=== PATIENT | female | born 1990 | race Caucasian/White ===

== ENCOUNTER 2016-12-18 17:59 | Emergency (ER) | payer BC ==
[2016-12-18 20:08] VITALS: BP 120/70
--- NOTE | 2017-01-03 18:00 | UC ---
Throat Pain/Nasal Boaz HPI - HPI Summary HPI Summary: pt p/w increased cough, chest congestion, wheezing, st, and hoarse voice for days following 6 days of sinus congestion/pain and subjective fever. pt reports that those symptoms resolved as the respiratory ones started. cough interferring with sleep - History of Current Complaint Chief Complaint: UCGeneralIllness Stated Complaint: CONGESTION/WHEEZING Time Seen by Provider: 12/18/16 20:20 Hx Obtained From: Patient Hx Last Menstrual Period: 12/16/16 ?: No Onset/Duration: Gradual Onset, Lasting Days - 6 days of resolved sx and 1 days of new sx. Severity: Moderate Pain Intensity: 0 Pain Scale Used: 0-10 Numeric Cough: Nonproductive Associated Signs & Symptoms: Positive: Dysphagia - painful, Wheezing, Hoarseness. Negative: Drooling, Sinus Discomfort - resolved, Nasal Discharge - resolved, Fever - resolved - Allergies/Home Medications Allergies/Adverse Reactions: Allergies Allergy/AdvReac Type Severity Reaction Status Date / Time No Known Allergies Allergy Verified 12/18/16 20:02 PMH/Surg Hx/FS Hx/Imm Hx Endocrine History Of: Reports: Thyroid Disease Denies: Diabetes Cardiovascular History Of: Denies: Hypertension, Pacemaker/ICD GI/ History Of: Reports: Gastroesophageal Reflux Denies: Renal Disease Psychological History Of: Reports: Depression - Surgical History Surgical History: Yes Surgery Procedure, Year, and Place: WISDOM TEETH REMOVAL. GALLBLADDER REMOVAL - Family History Known Family History: Positive: Hypertension Negative: Cardiac Disease, Diabetes - Social History Occupation: Employed Full-time Lives: With Family Alcohol Use: None Substance Use Type: None Smoking Status (MU): Never Smoked Tobacco Have You Smoked in the Last Year: No - Immunization History Most Recent Influenza Vaccination: 06/2016 Review of Systems ENT: Sore Throat Respiratory: Cough, Other - wheezing All Other Systems Reviewed And Are Negative: Yes Physical Exam Triage Information Reviewed: Yes Appearance: Well-Appearing, No Pain Distress, Well-Nourished Vital Signs: Initial Vital Signs Temp 97.8 F 12/18/16 20:05 Pulse 93 12/18/16 20:05 Resp 20 12/18/16 20:05 BP 120/70 12/18/16 20:05 Pulse Ox 99 12/18/16 20:05 Vital Signs Reviewed: Yes Eyes: Positive: Conjunctiva Clear. Negative: Discharge ENT: Positive: Hearing grossly normal, Pharynx normal, TMs normal, Muffled/ hoarse voice. Negative: Nasal congestion, Nasal drainage, Tonsillar swelling, Tonsillar exudate, Trismus Neck: Positive: Supple, Nontender Respiratory: Positive: Lungs clear, Normal breath sounds, No respiratory distress, No accessory muscle use, Expiration - prolonged exp at bases bl Cardiovascular: Positive: RRR, No Murmur Musculoskeletal Exam: Normal Neurological: Positive: Alert, Muscle Tone Normal Psychological: Positive: Age Appropriate Behavior Skin Exam: Normal Throat Pain/Nasal Course/Dx - Differential Dx/Diagnosis Differential Diagnosis/HQI/PQRI: Laryngitis, Pharyngitis, Sinusitis, Tonsillitis , URI, Other - bronchitis, pna Provider Diagnoses: laryngitis, bronchospasm Discharge - Discharge Plan Condition: Stable Disposition: HOME Prescriptions: Albuterol HFA INHALER* [Ventolin HFA Inhaler*] 2 puff INH Q4H PRN #1 mdi PRN Reason: Sob/Wheezing guaiFENesin ER TAB [Mucinex*] 600 mg PO BID PRN #1 box PRN Reason: Cough guaiFENesin/CODIEN 100MG-10MG* [Robitussin AC 100Mg-10Mg*] 5 - 10 ml PO BEDTIME PRN #100 udc MDD 10ml PRN Reason: Cough Patient Education Materials: Laryngitis (ED), Bronchospasm (ED) Referrals: Gilbert Avitia MD [Primary Care Provider] - If Needed Additional Instructions: INHALED BRONCHODILATORS: You have received a prescription for an inhaled bronchodilator -- a medication which stimulates the airways in the lung to dilate. This improves the flow of air in asthma, bronchitis, and emphysema. These medicines have some similarity to adrenaline, and can cause similar side effects: shakiness, racing heart, and a sense of nervousness. These side effects decrease with time. Contact your doctor if these side effects are severe. Do not over-use the medicine. Too-frequent use of the inhaler may make it ineffective. Call your doctor if the inhaler is not controlling your symptoms at the prescribed doses. COUGH-SUPPRESSANT & EXPECTORANT MEDICATION: You are to use a cough medication as needed for relief of symptoms. This medicine is a combination of an expectorant (to make the mucous thinner and more easily "coughed up") and a cough suppressant (to reduce the frequency of coughing). The cough-suppressant medicine is related to narcotics. You may experience mild nausea and sleepiness. Some patients who are very sensitive to narcotics may have stomach pain from this medicine. Taking the medicine with food reduces these side effects. Do not drive or work with machinery until you know how this medicine affects you. The expectorant should have no side effects. Iodine-containing expectorants (such as organidin) should not be taken by persons with active thyroid disease unless approved by your doctor. Call the doctor if you develop shortness of breath, hives, rash, itching, lightheadedness, or severe nausea and vomiting. EXPECTORANT MEDICATION: An expectorant medicine has been prescribed. This type of drug makes mucous thinner, helping the sinuses, nose, and bronchial tubes to remain free of pus and mucous. Expectorants make a cough less severe and more comfortable, and help infected sinuses drain. In general, antihistamines defeat the purpose of the expectorant by making mucous thicker. They should be avoided unless specifically recommended by your physician.
== END 2016-12-18 21:21 | disposition home or self-care (01) ==
LOC: UCCORT 17:59
DX: J04.0 Acute laryngitis (principal); J98.01 Acute bronchospasm; E07.9 Disorder of thyroid, unspecified; K21.9 Gastro-esophageal reflux disease without esophagitis; F32.9 Major depressive disorder, single episode, unspecified; Z90.49 Acquired absence of other specified parts of digestive tract
CPT/HCPCS: 99212; G0463

== ENCOUNTER 2017-06-18 15:05 | Emergency (ER) | payer BC ==
[2017-06-18 16:49] VITALS: BP 126/85
--- NOTE | 2017-06-18 16:57 | UC ---
Complaint Female HPI - HPI Summary HPI Summary: "I think I have a UTI." Suprapubic pressure, urinary frequency, and urinary urgency for three days. Patient dipped her urine at work and stated that she had blood, leuks, and protein in her urine today. Denies fever/chills, abdominal pain, back pain, increased NVD, dysuria, gross hematuria, or abnormal vaginal discharge/itching/odor/pain. Patient called her OB and was instructed to leave a sample at the hospital but did not want to wait for results while symptomatic. Patient is a medical device sales consultant. PCP Sadi. [facility] but switching to [place] (06/28/17). No fever or concerns for nausea / kidney concerns. Baby is moving . 23 weeks and THONG 10/26/17 [ End ] - History Of Current Complaint Chief Complaint: UCGU Stated Complaint: URINARY Time Seen by Provider: 06/18/17 16:46 Hx Obtained From: Patient Hx Last Menstrual Period: 12/16/16 Onset/Duration: Gradual Onset Timing: Constant Severity Initially: Mild Severity Currently: Mild - Allergies/Home Medications Allergies/Adverse Reactions: Allergies Allergy/AdvReac Type Severity Reaction Status Date / Time No Known Allergies Allergy Verified 06/18/17 16:27 Home Medications: Home Medications Vitamin TAB* 1 tab PO DAILY 06/18/17 [History Confirmed 06/18/17] PMH/Surg Hx/FS Hx/Imm Hx Previously Healthy: Yes - Surgical History Surgical History: Yes Surgery Procedure, Year, and Place: Laproscopy, 2016, [place]; Cholecystectomy, 2014, [place]; - Family History Known Family History: Positive: Hypertension Negative: Cardiac Disease, Diabetes - Social History Occupation: Employed Full-time - [place] Lives: With Family Alcohol Use: None Substance Use Type: None Smoking Status (MU): Never Smoked Tobacco Have You Smoked in the Last Year: No - Immunization History Most Recent Influenza Vaccination: Not the 2016/2017 Season Review of Systems Genitourinary: Dysuria, Frequency, Urgency All Other Systems Reviewed And Are Negative: Yes Physical Exam Triage Information Reviewed: Yes Appearance: Well-Appearing, No Pain Distress, Well-Nourished Vital Signs: Initial Vital Signs Temp 98.8 F 06/18/17 16:24 Pulse 96 06/18/17 16:24 Resp 18 06/18/17 16:24 BP 126/85 06/18/17 16:24 Pulse Ox 99 06/18/17 16:24 Vital Signs Reviewed: Yes Eye Exam: Normal ENT Exam: Normal Dental Exam: Normal Neck exam: Normal Neck: Positive: 1 Respiratory Exam: Normal Cardiovascular Exam: Normal Abdomen Description: Positive: Other: - gravid Musculoskeletal Exam: Normal Neurological Exam: Normal Psychological Exam: Normal Skin Exam: Normal Complaint Female Dx - Course Course Of Treatment: Simple UTI -- if Sx worsen then go to ED. Discussed meds and f/u - Differential Dx/Diagnosis Differential Diagnosis/HQI/PQRI: Urinary Tract Infection Provider Diagnoses: UTI during second trimester Discharge - Discharge Plan Condition: Good Disposition: HOME Prescriptions: Nitrofurantoin Monohyd Macro [Macrobid] 100 mg PO BID #14 cap Patient Education Materials: Urinary Tract Infection in Women (ED) Referrals: Gilbert Avitia MD [Primary Care Provider] - 3 Days
--- NOTE | 2017-06-22 10:54 | UC ---
Progress - Progress Note Progress Note: PLEASE HAVE THE PT. SPOT MACROBID WILL ERX AUGMENTIN 2 X PER DAY X 10 DAYS
== END 2017-06-18 17:02 | disposition home or self-care (01) ==
LOC: UCCORT 15:05
DX: O23.32 Infections of other parts of urinary tract in pregnancy, second trimester (principal); Z3A.23 23 weeks gestation of pregnancy; O23.42 Unspecified infection of urinary tract in pregnancy, second trimester; B96.1 Klebsiella pneumoniae [K. pneumoniae] as the cause of diseases classified elsewhere
CPT/HCPCS: 81003; 87077; 87086; 87186; 99212; G0463

== ENCOUNTER 2019-10-03 09:57 | Inpatient (IN) | payer BC ==
[~2019-10-03 09:57] MED LIST: Buffered Lidocaine 1% SYRIN* 1 ML/SYRINGE INTRADERM ONE; Famotidine IV* 10 MG/ML 2 ML (20 mg) IV ONE; Lactated Ringers 1000 ML Bag* 1,000 ML IV SCH
[2019-10-03] MEDS ORDERED: ceFAZolin 1 GM ADVAN(*) 1 GM ADDV.VIAL IVPB ONE (10:30)
[2019-10-03] MEDS ORDERED: Heparin VIAL(*) 5000 UNITS/ML VIAL (FIVE THOUSAND) ONE (10:30)
[2019-10-03] MEDS ORDERED: Famotidine IV* 10 MG/ML 2 ML (20 mg) ONE (10:30)
[2019-10-03] MEDS ORDERED: ceFAZolin 2 GM in NS PREMIX(*) 2 GM/100 ML BAG IVPB ONE (10:31)
[2019-10-03] MEDS ORDERED: Lidocaine 2% PF * 5 ML VIAL ONE (11:07)
[2019-10-03] MEDS ORDERED: fentaNYL* 50 MCG/ML 2 ML VIAL (100 MCG VIAL) ONE ×2 (11:07→18:35)
[2019-10-03] MEDS ORDERED: Propofol* 10 MG/ML 20 ML BTL ONE (11:07)
[2019-10-03] MEDS ORDERED: Rocuronium* 10 MG/ML VIAL ONE (11:07)
[2019-10-03] MEDS ORDERED: Dexamethasone IV* 4 MG/ML 1 ML (4 MG) ONE (11:07)
[2019-10-03] MEDS ORDERED: Ketorolac INJ* 30 MG/ML 1 ML VIAL ONE (11:07)
[2019-10-03] MEDS ORDERED: Ondansetron INJ* 2 MG/ML VIAL ONE (11:07)
[2019-10-03] MEDS ORDERED: Midazolam* 1 MG/ML 5 ML VIAL (5 MG) ONE (11:08)
[2019-10-03] MEDS ORDERED: KETAMINE HCL* 50 MG/ML 10 ML VIAL ONE (11:08)
[2019-10-03] MEDS ORDERED: Acetaminophen TAB* 325 MG ONE (14:02)
[2019-10-03] MEDS ORDERED: Bupivacaine 0.25% EPI 200,000* 30 ML SDV ONE (15:44)
[2019-10-03] MEDS ORDERED: Scopolamine 1.5 mg* PATCH ONE (16:04)
[2019-10-03] MEDS ORDERED: DiMENhydriNATE IV* 50 MG/ML VIAL IV PUSH PRN (16:37)
[2019-10-03] MEDS ORDERED: PROCHLORPERAZINE INJ 5 MG/ML 2 ML VIAL IV PRN (16:37)
[2019-10-03] MEDS ORDERED: Naloxone* 0.4 MG/ML 1 ML VIAL IV PRN (16:37)
[2019-10-03] MEDS ORDERED: fentaNYL* 50 MCG/ML 2 ML VIAL (100 MCG VIAL) IV PRN (16:37)
[2019-10-03] MEDS ORDERED: Metoclopramide IV* 5 MG/ML 2 ML VIAL ONE (16:47)
[2019-10-03] MEDS ORDERED: Sugammadex * 500 MG/5 ML VIAL IV PUSH ONE (16:57)
[2019-10-03] MEDS: Ketorolac INJ* 30 MG/ML 1 ML VIAL IV SCH ×2 (17:00→23:32)
[2019-10-03] MEDS ORDERED: HYDROmorphone INJ1* 1 MG/ML SYRINGE ONE (17:07)
[2019-10-03] MEDS ORDERED: diPHENhydraMINE IV* 50 MG/ML 1 ml VIAL (BENADRYL) SLOW PUSH PRN (17:18)
[2019-10-03] MEDS ORDERED: Acetaminophen ADULT LIQ* 650 MG/20.3 ML UDC PO PRN (17:18)
[2019-10-03] MEDS ORDERED: HYDROmorphone INJ* 0.5 MG/0.5 ML SYRINGE IV SLOW PU PRN (17:18)
--- NOTE | 2019-10-03 17:18 | BRIEFOPN ---
Brief Operative/Procedure Note - Operation Details Pre-Op Diagnosis: Morbid obesity Post-Op Diagnosis: Morbid obesity Procedures: Laparoscopic sleeve gastrectomy Surgeon(s)/Proceduralists: Dr. Arnold. Assist: MATTEO He. MATTEO Hernández Anesthesia: GETA. IVF: 2L Estimated Blood Loss: <50cc Findings: As above Specimen(s)/Culture(s) Description: Stomach portion Complications: None
[2019-10-03] MEDS ORDERED: DiMENhydriNATE IV* 50 MG/ML VIAL ONE (17:44)
[2019-10-03] MEDS ORDERED: PROCHLORPERAZINE INJ 5 MG/ML 2 ML VIAL ONE (17:52)
[2019-10-03] MEDS: Lactated Ringers 1000 ML Bag* 1,000 ML IV SCH (20:08)
[2019-10-03] MEDS: Famotidine IV* 10 MG/ML 2 ML (20 mg) IV SLOW PU SCH (21:15)
[2019-10-03] MEDS: Heparin VIAL(*) 5000 UNITS/ML VIAL (FIVE THOUSAND) SUBCUT SCH (21:18)
[2019-10-03] MEDS: Ondansetron INJ* 2 MG/ML VIAL IV PRN (21:36)
--- NOTE | 2019-10-04 01:24 | OP ---
CC: [facility]; MATTEO Edwards * DATE OF OPERATION: 10/03/19 - ROOM #352 DATE OF : 88 SURGEON: Qasim Arnold MD ASSISTANTS: 1. MATTEO Oscar 2. MATTEO Uriarte ANESTHESIOLOGIST: Dr. Navid Barone. ANESTHESIA: General endotracheal. PRE-OP DIAGNOSES: 1. Morbid obesity. 2. Hiatal hernia. POST-OP DIAGNOSIS: Morbid obesity. OPERATIVE PROCEDURE: Laparoscopic sleeve gastrectomy. ESTIMATED BLOOD LOSS: Minimal. IV FLUIDS: Crystalloid. SPECIMENS: Portion of stomach. DRAINS: None. COMPLICATIONS: None. COUNTS: Instrument, needle, and sponge counts were correct. DESCRIPTION OF PROCEDURE: The patient was brought to the operating room and placed on the table supine. Sequential compression devices were placed in both lower extremities. General anesthesia was administered. She was positioned and padded appropriately. She received appropriate intravenous antibiotics. She was prepped and draped in the usual sterile fashion and a time-out was performed. Local anesthetic was infiltrated into the skin and soft tissue prior to making each incision and entry through the abdomen is through a left upper quadrant incision accommodating a 5-mm optical trocar. After accessing the peritoneal cavity, carbon dioxide was insufflated to a pressure of 15 mmHg. Under direct visualization, 12 mm bladeless trocars were placed in the supraumbilical midline and right upper quadrant. A 5-mm trocar was placed through left upper quadrant laterally and Giovanni liver retractor was placed percutaneously in the subxiphoid position used to elevate the left lobe of the liver. Careful inspection of the gastric anatomy revealed no evidence of hiatal hernia. Epigastric fat pad was mobilized and there were no dimpling, no evidence of hernia whatsoever. Greater curvature was then mobilized starting at 6 cm proximal to the pylorus and using LigaSure the entire greater curvature was skeletonized and the lesser sac was entered. The dissection proceeded to left clement of the diaphragm. There was inspection of the hiatus from the posterior, yet again no evidence of any hernia. At this point, it was decided that sleeve gastrectomy would be performed. Sleeve gastrectomy was performed over a 40-Frisian bougie using EndoGIA stapler with purple reinforced cartridges. After completing the serial division of the stomach, the gastric specimen was retrieved through right upper quadrant port site. Hemostasis was assured. Staple ends were noted to be intact. Igovanni liver retractor and ports were removed under direct visualization, and carbon dioxide was released. Skin incisions were closed with 4-0 Monocryl in subcuticular fashion. DermaFlex was applied. The patient tolerated the procedure well, was extubated and transferred to the recovery room in stable condition. [id number]/[facility] #: [id number] MTDD
[2019-10-04] MEDS: Lactated Ringers 1000 ML Bag* 1,000 ML IV SCH ×2 (03:03→10:03)
[2019-10-04] MEDS: HYDROmorphone INJ1* 1 MG/ML SYRINGE IV SLOW PU PRN ×3 (03:15→22:02)
[2019-10-04] MEDS: Ondansetron INJ* 2 MG/ML VIAL IV PRN ×3 (03:28→17:09)
[2019-10-04] MEDS: Ketorolac INJ* 30 MG/ML 1 ML VIAL IV SCH ×3 (06:28→17:09)
[2019-10-04] MEDS: Levothyroxine INJ* 100 MCG/5 ML VIAL IV SCH (06:28)
[2019-10-04] MEDS: Heparin VIAL(*) 5000 UNITS/ML VIAL (FIVE THOUSAND) SUBCUT SCH ×3 (06:29→22:00)
[2019-10-04] MEDS: Famotidine IV* 10 MG/ML 2 ML (20 mg) IV SLOW PU SCH ×2 (10:03→21:55)
--- NOTE | 2019-10-04 10:22 | PN ---
Progress Note - Progress Note Date of Service: 10/04/19 SOAP: Subjective: NAD c/o nausea overnight, no nausea now [] Objective: Vital Signs Temp 98.7 F 10/04/19 07:53 Pulse 83 10/04/19 07:53 Resp 16 10/04/19 10:03 BP 124/65 10/04/19 07:53 Pulse Ox 97 10/04/19 07:53 Intake & Output 10/03/19 10/04/19 10/04/19 18:59 06:59 18:59 Intake Total 3808 667 1331 Output Total 700 300 Balance 1900 290 722 Weight 257 lb 7.999 oz Intake: IV Fluids 0980 777 8483 LR 9060 133 0089 Oral 0 Output: Urine 700 300 PEX: Gen: NAD Chest: CTA CVS: RRR ABD: Obese, incisions C/D/I, Incisional tenderness Ext: Calves Soft, non tender Assessment: 29 yo female POD 1 S/P lap sleeve gastrectomy [] Plan: Begin tashia clears, IS, encouraged Deep Breathing, OOB, Ambulate []
[2019-10-04] MEDS: HYDROcodone/ACET. 7.5/325 LIQ* 15 ML UDC PO PRN (15:48)
[2019-10-04] MEDS: Metoclopramide IV* 5 MG/ML 2 ML VIAL IV PRN ×2 (15:48→21:52)
[2019-10-04] MEDS: D5W 1/2 NS KCl 20 Meq 1000 ML* 1,000 ML IV SCH (17:04)
[2019-10-05] MEDS: Ondansetron INJ* 2 MG/ML VIAL IV PRN ×2 (00:33→09:49)
[2019-10-05] MEDS: Ketorolac INJ* 30 MG/ML 1 ML VIAL IV SCH ×3 (00:33→12:43)
[2019-10-05] MEDS: D5W 1/2 NS KCl 20 Meq 1000 ML* 1,000 ML IV SCH ×2 (00:38→07:56)
[2019-10-05] MEDS: HYDROmorphone INJ1* 1 MG/ML SYRINGE IV SLOW PU PRN (04:36)
[2019-10-05] MEDS: Metoclopramide IV* 5 MG/ML 2 ML VIAL IV PRN (04:36)
[2019-10-05] MEDS: Heparin VIAL(*) 5000 UNITS/ML VIAL (FIVE THOUSAND) SUBCUT SCH ×2 (06:01→14:31)
[2019-10-05] MEDS: Levothyroxine INJ* 100 MCG/5 ML VIAL IV SCH (06:06)
--- NOTE | 2019-10-05 08:39 | PN ---
Progress Note - Progress Note Date of Service: 10/05/19 SOAP: Subjective: Feeling better today. Less pain and no nausea. Starting to drink more. Feels she could go home later. Discussed findings at time of surgery. Objective: Vital Signs Temp 97.6 F 10/05/19 08:25 Pulse 60 10/05/19 08:25 Resp 15 10/05/19 08:25 BP 110/64 10/05/19 08:25 Pulse Ox 99 10/05/19 08:25 Gen: NAD Abd: incisions c/d/i; no erythema; soft and min tender. Intake & Output 10/04/19 10/05/19 10/05/19 18:59 06:59 18:59 Intake Total 2080 1192 904 Output Total 300 1050 300 Balance 1780 142 604 Intake: IV Fluids 1989 922 904 D5W 1/2 NS 20 meq KCL 922 904 LR 1989 Oral 90 270 Output: Urine 300 1050 300 Assessment: POD#2 s/p LSG. Improving. Plan: Cont clears. Resume home meds. OK to give a few doses of Zofran for home use. When meets goal (4-6oz/hr) can be discharged, later today or in AM.
[2019-10-05] MEDS ORDERED: Pantoprazole TAB * 40 MG TAB PO SCH (09:00)
[2019-10-05] MEDS ORDERED: Levothyroxine TAB* 75 MCG TAB PO SCH (09:00)
[2019-10-05] MEDS ORDERED: Gabapentin CAP(*) 300 MG PO SCH (09:00)
[2019-10-05] MEDS: Famotidine IV* 10 MG/ML 2 ML (20 mg) IV SLOW PU SCH (09:09)
[2019-10-05] MEDS: Vitamin THERAPEUTIC TAB PO SCH ×2 (09:42→10:00)
[2019-10-05] MEDS: HYDROcodone/ACET. 7.5/325 LIQ* 15 ML UDC PO PRN ×2 (09:51→15:28)
[2019-10-05 11:16] VITALS: BP 115/66
[2019-10-05] MEDS ORDERED: Ondansetron ODT TAB* 4 MG PO ONE (15:02)
[2019-10-05] MEDS ORDERED: Ondansetron ODT TAB* 4 MG ONE (15:03)
[2019-10-05] MEDS ORDERED: PYRIDOXINE HCL PO SCH (21:00)
[2019-10-05] MEDS ORDERED: MELATONIN PO SCH (21:00)
[2019-10-06] MEDS ORDERED: Scopolamine PATCH Remove* 1 NOTE MISC PATCH OFF ONE (16:39)
== END 2019-10-05 16:07 | disposition home or self-care (01) | DRG 403 ==
LOC: AA 09:57 → SSU 17:18
PROVIDERS: ADMIT Surgery; ATTEND Surgery
PROC: 0DB64Z3 Excision of Stomach, Percutaneous Endoscopic Approach, Vertical (ICD-10-PCS; principal; 2019-10-03 11:45)
DX: E66.01 Morbid (severe) obesity due to excess calories (principal); Z68.41 Body mass index [BMI] 40.0-44.9, adult; K21.9 Gastro-esophageal reflux disease without esophagitis; G89.29 Other chronic pain; M54.9 Dorsalgia, unspecified; E03.9 Hypothyroidism, unspecified; K44.9 Diaphragmatic hernia without obstruction or gangrene; Z79.890 Hormone replacement therapy
CPT/HCPCS: 43775; 81025; 88307; A9270-GY; J0690; J0780; J1100; J1170; J1240; J1644; J1885; J2250; J2405; J2704; J2765; J3010